=== PATIENT | male | born 1975 | race Two or more races ===

== ENCOUNTER 2023-11-01 19:20 | Emergency (ER) | payer OTHER ==
[~2023-11-01] VITALS: Ht 177.8 cm; Wt 90.9 kg
[2023-11-01 19:49] VITALS: BP 105/69; PULSE 62; RESP 16; TEMP 97.6
[2023-11-01] MEDS ORDERED: METH-812 PO (20:36)
[2023-11-01] MEDS ORDERED: IBUP-1554 PO (20:36)
== END 2023-11-01 21:11 | disposition home or self-care (01) ==
LOC: EMS 19:20
DX: G89.29 Other chronic pain (principal); M54.50 Low back pain, unspecified; T40.715A Adverse effect of cannabis, initial encounter; F32.9 Major depressive disorder, single episode, unspecified; F12.90 Cannabis use, unspecified, uncomplicated; Y92.89 Other specified places as the place of occurrence of the external cause
CPT/HCPCS: 99283